=== PATIENT | female | born 1960 | race Hispanic/Latino ===

== ENCOUNTER 2023-05-01 11:38 | Emergency (ER) | payer OTHER | END 2023-05-01 12:29 | disposition home or self-care (01) | LOC: NAV ERS 11:38 | DX: Z76.0 Encounter for issue of repeat prescription (principal); E11.9 Type 2 diabetes mellitus without complications; E03.9 Hypothyroidism, unspecified; I10 Essential (primary) hypertension | CPT/HCPCS: 99281 ==